=== PATIENT | female | born 1945 | race Caucasian/White ===

== ENCOUNTER 2022-02-07 04:41 | Day surgery (SDC) | payer OTHER, BC ==
[2022-01-27 10:14] VITALS: BMI 43.0
[2022-02-07] MEDS ORDERED: LIDOCAINE HCL/PF 1% SDV 5ML VIAL ONE (07:14)
[2022-02-07] MEDS ORDERED: LIDOCAINE 1% P/F 10 MG/ML VIAL INF ONE (08:46)
[2022-02-07 11:05] VITALS: TEMP 97.8
[2022-02-07 11:10] VITALS: BP 144/72; PULSE 74
== END 2022-02-07 11:00 | disposition home or self-care (01) ==
LOC: JASU-SURG 04:41
PROVIDERS: ATTEND Pain Medicine Pain Medicine
PROC: 4B01XVZ Measurement of Peripheral Nervous Stimulator, External Approach (ICD-10-PCS; 2022-02-07)
PROC: 01HY3MZ Insertion of Neurostimulator Lead into Peripheral Nerve, Percutaneous Approach (ICD-10-PCS; principal; 2022-02-07 09:00)
DX: G89.4 Chronic pain syndrome (principal); M25.562 Pain in left knee
CPT/HCPCS: 64555; C1897

== ENCOUNTER 2022-03-10 03:53 | Day surgery (SDC) | payer OTHER, BC ==
[2022-03-07 19:19] VITALS: BMI 38.7
[2022-03-10] MEDS ORDERED: LIDOCAINE HCL/PF 1% SDV 5ML VIAL ONE (07:03)
[2022-03-10] MEDS ORDERED: LIDOCAINE HCL 1%, 10 MG/ML (50 mL VIAL) INF ONE (08:55)
[2022-03-10 09:57] VITALS: BP 145/63; PULSE 87; TEMP 97.4
== END 2022-03-10 10:20 | disposition home or self-care (01) ==
LOC: JASU-SURG 03:53
PROVIDERS: ATTEND Pain Medicine Pain Medicine
PROC: 01HY3MZ Insertion of Neurostimulator Lead into Peripheral Nerve, Percutaneous Approach (ICD-10-PCS; principal; 2022-03-10 08:00)
DX: G89.4 Chronic pain syndrome (principal); M25.561 Pain in right knee
CPT/HCPCS: 64555; C1897

== ENCOUNTER 2022-06-20 04:10 | Day surgery (SDC) | payer OTHER, BC ==
[2022-06-16 15:55] VITALS: BMI 38.7
[2022-06-20 07:20] VITALS: RESP 18
[2022-06-20] MEDS ORDERED: LIDOCAINE HCL/PF 1% SDV 5ML VIAL ONE (07:41)
[2022-06-20] MEDS ORDERED: LIDOCAINE HCL 1% PRESERVATIVE FREE - 30ML VIAL IJ ONE (08:35)
[2022-06-20 09:30] VITALS: TEMP 98.3
[2022-06-20 09:41] VITALS: BP 150/70; PULSE 70
== END 2022-06-20 09:50 | disposition home or self-care (01) ==
LOC: JASU-SURG 04:10
PROVIDERS: ATTEND Pain Medicine Pain Medicine
PROC: 01HY3MZ Insertion of Neurostimulator Lead into Peripheral Nerve, Percutaneous Approach (ICD-10-PCS; principal; 2022-06-20 08:00)
DX: G89.4 Chronic pain syndrome (principal); M25.512 Pain in left shoulder
CPT/HCPCS: 64555; C1897; C1778